=== PATIENT | female | born 1975 | race Hispanic/Latino ===

== ENCOUNTER 2017-05-25 06:47 | Day surgery (SDC) | payer OTHER ==
[2017-05-25] MEDS ORDERED: ZOFRAN IV PRN (07:38)
[2017-05-25] MEDS ORDERED: PERCOCET 5/325 PO PRN (07:38)
[2017-05-25] MEDS ORDERED: MORPHINE IV PRN (07:38)
--- NOTE | 2017-05-25 07:40 | Anesthesia Day of Surgery ---
Anesthesia Day of Surgery - Day of Surgery Patient Examined: Yes Patient is NPO: Yes Beta Blockers: No
--- NOTE | 2017-05-25 07:45 | Anesthesia Consultation ---
Anesthesia Consult and Med Hx Date of service: 05/25/17 - Airway Anesthetic Teeth Evaluation: Good ROM Head & Neck: Adequate Mental/Hyoid Distance: Adequate Mallampati Class: Class II Intubation Access Assessment: Probably Good - Pulmonary Exam CTA: Yes - Cardiac Exam Cardiac Exam: RRR - Pre-Operative Health Status ASA Pre-Surgery Classification: ASA2 Proposed Anesthetic Plan: General, MAC - Pulmonary Hx Smoking: Yes (STOPPED X 3 YRS- 1 PPD X 15YRS; now Vapes) Hx Asthma: No Hx Sleep Apnea: No - Cardiovascular System Hx Hypertension: No - Central Nervous System CVA: No Hx Psychiatric Problems: No - Gastrointestinal Hx Gastroesophageal Reflux Disease: No - Endocrine Hx Renal Disease: No Hx Liver Disease: No Hx Non-Insulin Dependent Diabetes: No - Hematic Hx Anemia: Yes - Other Systems Hx Alcohol Use: No Hx Substance Use: No Hx Cancer: Yes (RIGHT BREAST)
[2017-05-25] MEDS ORDERED: NACL 0.9% 1000 ML 1,000 ML IV SCH (08:00)
[2017-05-25] MEDS ORDERED: VERSED IV NR (08:00)
[2017-05-25] MEDS ORDERED: PEPCID PO NR (08:00)
--- NOTE | 2017-05-25 10:30 | Short Stay Summary ---
Short Stay Documentation Date of service: 05/25/17 Narrative H&P: This is a 42 year old lady with personal history of right breast cancer presenting today for port removal. She completed neoadjuvant chemotherapy followed by a right partial mastectomy. Port no longer indicated and patient would like removed. - History Past Surgical History: Other (right breast partial mastectomy) - Allergies and Medications Current Medications: Allergies No Known Allergies Allergy (Verified 05/24/17 16:00) Home Medications Medication Instructions Recorded Confirmed Last Taken Type Tamoxifen Citrate 20 mg PO QDAY 05/24/17 05/25/17 05/24/17 09:00 History Active Medications Sodium Chloride (Nacl 0.9% 1000 Ml) 1,000 mls @ 75 mls/hr IV DIRECT CAROLYN Last Admin: 05/25/17 08:28 Dose: 75 mls/hr Midazolam HCl (Versed) 2 mg IV PREOP NR Stop: 05/25/17 23:59 Morphine Sulfate (Morphine) 2 mg IV Q10MIN PRN PRN Reason: Pain, Moderate (4-6) Stop: 05/25/17 12:00 Oxycodone/Acetaminophen (Percocet 5/325) 1 tab PO ONCE PRN PRN Reason: Pain, Moderate (4-6) Stop: 05/25/17 11:00 - Physical exam General appearance: no acute distress Integumentary: no rash HEENT: Atraumatic, PERRLA, EOMI Lungs: Clear to auscultation Breasts: other (right breast incision well healed) Heart: Regular rate Gastrointestinal: normal Female Genitourinary: deferred Rectal Exam: deferred Extremities: no ischemia, pulses intact, pulses symmetrical, No edema, normal temperature, normal color, Full ROM Neurological: Normal gait - Brief post op/procedure progress note Date of procedure: 05/25/17 Pre-op diagnosis: Personal history of right breast cancer Post-op diagnosis: same Procedure: Left port removal Anesthesia: MAC Findings: Left port removal in its entirety Surgeon: NICOLAS DEL TORO Estimated blood loss: minimal Pathology: none Specimen disposition: discarded Condition: stable - Disposition Condition at discharge: Good Disposition: DC-01 TO HOME OR SELFCARE Short Stay Discharge Plan Activity: no restrictions Diet: regular Wound: other (may shower in 24 hours; no baths, pools or lakes; do not rub or scrub incisino) Follow up with: NICOLAS DEL TORO MD [Primary Care Provider] - 7 Days
[2017-05-25] MEDS ORDERED: DILAUDID ONE (10:31)
[2017-05-25] MEDS ORDERED: DIPRIVAN 10 MG/ML IV ONE (10:32)
[2017-05-25] MEDS ORDERED: XYLOCAINE 1% 20 mL ONE (10:36)
[2017-05-25] MEDS ORDERED: MARCAINE 0.25% INFILTRATI ONE ×2 (10:36→10:44)
[2017-05-25] MEDS ORDERED: XYLOCAINE 1% 20 mL INFILTRATI ONE (10:44)
[2017-05-25] MEDS ORDERED: WATER FOR IRRIG STERILE IR ONE (10:44)
[2017-05-25] MEDS ORDERED: XYLOCAINE MPF 2% ONE (11:26)
--- NOTE | 2017-05-25 11:33 | Post Anesthesia Evaluation ---
- Post Anesthesia Evaluation Patient Participated: Yes Airway Patent: Yes Stable Respiratory Function: Yes Nausea/Vomiting: No Temp > 96.8F: Yes Pain Manageable: Yes Adequeate Hydration: Yes Anesthesia Complications: No Block Receding Appropriately: Not Applicable Patient on Ventilator: No
--- NOTE | 2017-05-25 11:35 | Operative Report ---
Operative Report Operative Report: Date of service: May 25, 2017 Preoperative diagnosis: Personal history of right breast cancer with central venous access not indicated Postoperative diagnosis: Same Procedure: Left port removal Surgeon: Lizz Santiago M.D. Anesthesia: Local MAC Findings: Port removed in its entirety Consultations: None Estimated blood loss: Minimal Patient's: None Disposition: PACU in good condition Indications for operative procedure: This is a 42-year-old lady with a personal history of stage II right breast cancer. Patient completed neoadjuvant chemotherapy follwed by a partial mastectomy with sentinel lymph node biopsy. She has completed her chemotherapy course. Central venous access is no longer indicated. Patient wanted port removed. Procedure in detail: Patient was taken to the operating room. The left chest was prepped and draped in the normal sterile operative fashion. Timeout was performed. Local MAC was administered. Skin was anesthesized with 1% lidocaine mix ed with quarter percent Marcaine. The area of prior incision was anesthetized. A skin incision was made with 15 blade knife and dissection taken down to the subcutaneous tissues. The port catheter was identified and was appropriately removed followed by removal of the port in its entirety. Hemostasis was noted. The subcutaneous tissues were approximated and closed using interrupted 3-0 Vicryl follwed by skin closure using a running 4-0 Monocryl and skin affix. She tolerated surgery very well and was awaken from anesthesia and transported to PACU in good condition.
[2017-05-25 12:54] VITALS: BP 133/77
== END 2017-05-25 12:12 | disposition home or self-care (01) ==
LOC: OR 06:47
PROVIDERS: ATTEND Surgery
DX: Z45.2 Encounter for adjustment and management of vascular access device (principal); Z85.3 Personal history of malignant neoplasm of breast; Z92.21 Personal history of antineoplastic chemotherapy; Z87.891 Personal history of nicotine dependence; Z90.13 Acquired absence of bilateral breasts and nipples
CPT/HCPCS: 36590; 88300; J1170; J2250; J2704; J7030; 88302

== ENCOUNTER 2020-12-22 14:27 | Outpatient (CLI) | payer OTHER ==
--- NOTE | 2020-12-22 16:00 | Mammography Report ---
DIGITAL SCREENING MAMMOGRAM WITH CAD, 12/22/2020 CLINICAL INFORMATION / INDICATION: Routine screening mammography. TECHNIQUE: Digital bilateral 2D mammography was obtained in the craniocaudal and mediolateral obliqu e projections. This examination was interpreted with the benefit of Computer-Aided Detection analysis . COMPARISON: 12/18/2018 FINDINGS: Breast Density: The breasts are extremely dense, which lowers the sensitivity of mammography. No dominant mass, suspicious calcifications, or architectural distortion in either breast. Bilateral postsurgical scars. Overall, no interval change. IMPRESSION: No mammographic evidence of malignancy. Follow up recommendation: Routine yearly BI-RADS Category 2: Benign. A "normal" or negative report should not discourage follow up or biopsy of a clinically significant f inding. A written summary of these findings will be mailed to the patient. The patient will be entered into a mammography reporting system which will generate a reminder letter for the patient's next appointmen t at the appropriate interval. The [employer] recommends yearly mammograms starting at age 40 and continuing as l luis miguel as a woman is in good health. Breast MRI is recommended for women with an approximate 20-25% or greater lifetime risk of breast cancer, including women with a strong family history of breast or ova saul cancer or who have been treated for Hodgkin's disease. Signer Name: Alicia Shin MD Signed: 12/22/2020 3:55 PM Workstation Name: [employer]
== END 2020-12-22 14:28 | disposition home or self-care (01) ==
LOC: SPVWC 14:27
PROVIDERS: ATTEND Surgery
DX: Z12.31 Encounter for screening mammogram for malignant neoplasm of breast (principal); N64.89 Other specified disorders of breast
CPT/HCPCS: 77067